=== PATIENT | male | born 2000 | race Asian ===

== ENCOUNTER 2025-05-14 14:35 | Inpatient (IN) | payer OTHER ==
[~2025-05-14] VITALS: Ht 172.7 cm; Wt 79.5 kg
[2025-05-14 15:28] LABS: PLATELET COUNT, AUTOMATED 292 10^3/uL (150-450)
[2025-05-14 15:51] LABS: AMPHETAMINES LEVEL URINE NEGATIVE (NEGATIVE); BARBITURATES URINE NEGATIVE (NEGATIVE); BENZODIAZEPINES URINE NEGATIVE (NEGATIVE); CANNABINOIDS URINE NEGATIVE (NEGATIVE); COCAINE METABOLITE URINE NEGATIVE (NEGATIVE); METHADONE URINE NEGATIVE (NEGATIVE); OPIATES URINE NEGATIVE (NEGATIVE); PHENCYCLIDINE URINE NEGATIVE (NEGATIVE)
[2025-05-14 16:02] LABS: SALICYLATE LEVEL < 3.0 MG/DL (<30)
[2025-05-14 16:06] LABS: ALT/SGPT 27 U/L (7.0-40); AST/SGOT 21 U/L (<34); CALCIUM LEVEL 9.3 MG/DL (8.5-10.1); CARBON DIOXIDE LEVEL 27 MMOL/L (20-31); CHLORIDE LEVEL 103 MMOL/L (98-107); CREATININE FOR GFR 0.79 MG/DL (0.70-1.30); ETHYL ALCOHOL (ETHANOL) < 0.003 % (0.000-0.010); GLOMERULAR FILTRATION RATE > 90.0 (>60); POTASSIUM SERUM 4.0 MMOL/L (3.5-5.1); SODIUM LEVEL 139 MMOL/L (136-145)
[2025-05-14] MEDS ORDERED: ACETAMINOPHEN 325 MG TAB PO PRN (17:10)
[2025-05-14] MEDS ORDERED: IBUPROFEN 400 MG TAB PO PRN (17:10)
[2025-05-14] MEDS ORDERED: MOM 30 ML SUSPENSION UDC PO PRN (17:10)
[2025-05-14] MEDS ORDERED: traZODone 50 MG TAB PO PRN (17:10)
[2025-05-14] MEDS ORDERED: MAALOX 30 ML SUSP *UDC PO PRN (17:10)
[2025-05-14] MEDS ORDERED: NYQUIL PO (17:11)
[2025-05-14] MEDS ORDERED: HOME MED LIST COMPLETE! XX SCH (17:15)
[2025-05-14 21:30] VITALS: BP 140/95; TEMP 97.8; O2SAT 99
[2025-05-15 06:42] VITALS: BP 119/68; TEMP 96.8; O2SAT 98
[2025-05-15 15:24] VITALS: BP 132/80; TEMP 97.6; O2SAT 97
[2025-05-16 06:38] VITALS: BP 96/52; TEMP 97.3; O2SAT 99
[2025-05-16 15:05] VITALS: BP 129/68; TEMP 97.7; O2SAT 100
[2025-05-17 06:53] VITALS: BP 97/61; TEMP 97; O2SAT 98
== END 2025-05-17 11:03 | disposition home or self-care (01) | DRG 881 ==
LOC: M ED 14:35 → M ED INP 17:08 → M PSY 20:45
PROVIDERS: ADMIT General Practice; ATTEND Psychiatry & Neurology Psychiatry
DX: F32.A Depression, unspecified (principal); R45.851 Suicidal ideations; G47.00 Insomnia, unspecified; F43.20 Adjustment disorder, unspecified; Z91.51 Personal history of suicidal behavior

== ENCOUNTER → 2025-08-14 | Outpatient (REF) ==
[~2025-08-14] MED LIST: NYQUIL PO
== END ==
LOC: M PLAIMG 12:32
PROVIDERS: ATTEND Internal Medicine
DX: Z01.89 Encounter for other specified special examinations (principal)